=== PATIENT | female | born 1945 | race Asian ===

== ENCOUNTER → 2016-12-27 | Outpatient (CLI) | payer MEDICARE ==
[~2016-12-27] MED LIST: GADOBUTROL 7.5 MMOL/7.5 ML PFS ONE
== END | disposition home or self-care (01) ==
LOC: CFH 14:49
PROVIDERS: ATTEND Registered Nurse
DX: M50.323 Other cervical disc degeneration at C6-C7 level (principal); M50.223 Other cervical disc displacement at C6-C7 level; M47.892 Other spondylosis, cervical region; G93.89 Other specified disorders of brain; R90.82 White matter disease, unspecified; G31.9 Degenerative disease of nervous system, unspecified; J34.1 Cyst and mucocele of nose and nasal sinus
CPT/HCPCS: 70553; 72156; A9585

== ENCOUNTER 2018-09-16 08:00 | Outpatient (CLI) | payer MEDICARE | END 2018-09-16 23:59 | disposition home or self-care (01) | LOC: RAD 08:00 | PROVIDERS: ATTEND Nurse Practitioner Family | DX: G25.0 Essential tremor (principal); R90.82 White matter disease, unspecified | CPT/HCPCS: 70450 ==